=== PATIENT | female | born 1975 | race Caucasian/White ===

== ENCOUNTER 2020-07-03 16:45 | Emergency (ER) | payer BC, SELFPAY ==
--- NOTE | ~2020-07-03 | XR_ITS ---
EXAMINATION: XR shoulder RT min 2V DATE: 07/03/2020 17:24 INDICATION: Right shoulder injury. TECHNIQUE: 4 views of right shoulder were obtained. COMPARISON: None. FINDINGS: Bone alignment is normal. No fracture. Glenohumeral joint is normal. There is mild acromioc lavicular joint osteoarthritis. IMPRESSION: 1. Mild right acromioclavicular joint osteoarthritis. Reviewed, dictated and finalized at location A.
[2020-07-03 16:52] VITALS: BP 189/100; PULSE 75; RESP 20; TEMP 36.2; O2SAT 100
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
== END 2020-07-03 17:40 | disposition home or self-care (01) ==
PROVIDERS: Emergency Provider Nurse Practitioner
DX: S40.011A Contusion of right shoulder, initial encounter (principal); W22.8XXA Striking against or struck by other objects, initial encounter; I10 Essential (primary) hypertension
CPT/HCPCS: 73030; 99213; G0463

== ENCOUNTER 2022-02-09 11:54 | Emergency (ER) | payer OTHER, MEDICAID, SELFPAY ==
[2022-02-09 12:06] VITALS: PULSE 78; RESP 16; TEMP 37; O2SAT 99
[2022-02-09 12:09] VITALS: BP 187/115
--- NOTE | 2022-02-09 12:53 | ED.URI ---
HPI - URI/Sore Throat General Chief Complaint: Upper Respiratory Infection Stated Complaint: Congestion/Fever Time Seen by Provider: 02/09/22 12:53 Source: patient, RN notes reviewed and old records reviewed Mode of arrival: ambulatory Limitations: no limitations History of Present Illness HPI Narrative: 46 year old female who presents to [facility] care with complaints of 4 days of headache night sweats, and intermittent temperatures with sore throat and cough. Patient reports that she had COVID Martina of 2020 and has not had flu shot.Patient has been taking Tylenol for her symptoms. Patient denies any shortness of breath with no tachypnea, SAO2 99% on room air, patient reports history of asthma. MD elicited complaint: fever, cough, sore throat and other (headache) Pertinent past history: asthma Onset (ago): day(s) (4) Treatments prior to arrival: acetaminophen Related Data Allergies Allergy/AdvReac Type Severity Reaction Status Date / Time diphenhydramine Allergy Palpitation Verified 09/30/20 14:45 [From Ernie] s Review of Systems Review of Systems: CONSTITUTIONAL: reports malaise, chills, sweats, or fever. EYES: Denies visual changes, redness, or discharge. ENT: Reports rhinorrhea, congestion, sinus pain,no otalgia positive sore throat. CARDIOVASCULAR: Denies chest pain, palpitations, or edema. RESPIRATORY: Reports cough.? Denies dyspnea. GASTROINTESTINAL: Denies abdominal pain, nausea, vomiting, diarrhea SKIN: Denies rash or itching. MUSCULOSKELETAL: reports generalized myalgia. NEUROLOGIC: Reports headache. All systems reviewed & are unremarkable except as noted in HPI and below PMFSH Past Medical History Medical History Allergies Anemia Anxiety Asthma Migraine Family History Family History Father , 2014 Diabetes mellitus Hypertension Heart disease Mother Asthma Diabetes mellitus Hypertension Depression Colon cancer Sibling Asthma Depression Son Asthma Depression Daughter Asthma Depression Grandparent Diabetes mellitus Hypertension Grandparent Diabetes mellitus Hypertension Heart disease Social History Social History Smoking packs per day: 0 Smoking cigarettes per day: 0.0 Years smoked: 0 Smoking pack-years: 0.00 Smoking status: Never smoker Second hand tobacco smoke exposure: No Alcohol intake: never Drinks per week: 0 Substance use: never 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 Gender identity (if verbalized by the patient): Female Sexual Orientation (if Verbalized by the Patient): Straight or Heterosexual Spiritual care concerns: No Agree to blood products: Yes Comments At time of signature, agree with nursing past medical, surgical, social and family history. There is no relevant family history pertinent to the presenting complaint Exam Narrative: GENERAL: Well-appearing, well-nourished, obese and in no acute distress. HEAD: Normocephalic EYES: PERRLA, conjunctivae clear ENT: Nares clear, turbinates edematous and erythematous, clear discharge. Mucous membranes moist. TM pearly valadez with dull light reflex bilaterally; no tragal tenderness. Oropharynx erythematous without lesions. Tonsils enlarged with white exudate, no drooling, no hoarseness, no trismus, uvula midline. NECK: Supple. lymphadenopathy CHEST: Clear to auscultation, breath sounds equal. No wheezing, rhonchi, rales, or stridor. No respiratory distress, speaks in full sentences.SAO2 99% on room air HEART: Regular rate and rhythm. No murmur heard. SKIN: Warm, dry, no rash. NEURO: Alert and oriented x3. PSYCH: Normal mood and affect Course Course Emergency Course: Patient is aware of diagnosis, understands and agrees to treatm
== END 2022-02-09 13:26 | disposition home or self-care (01) ==
PROVIDERS: Emergency Provider Registered Nurse
DX: J03.90 Acute tonsillitis, unspecified (principal); J45.909 Unspecified asthma, uncomplicated
CPT/HCPCS: 87804; 99213; G0463

== ENCOUNTER 2022-05-15 10:26 | Emergency (ER) | payer OTHER, MEDICAID, SELFPAY ==
[2022-05-15 10:33] VITALS: BP 155/89; PULSE 89; RESP 16; TEMP 37.4; O2SAT 98
--- NOTE | 2022-05-15 11:21 | ED.URI ---
HPI - URI/Sore Throat General Chief Complaint: Upper Respiratory Infection Stated Complaint: Cold Symptoms Time Seen by Provider: 05/15/22 11:15 Source: patient, RN notes reviewed and old records reviewed Mode of arrival: ambulatory Limitations: no limitations History of Present Illness HPI Narrative: 46-year-old female who presents to [facility] Care with complaints of 3 day history of cold symptoms which include right ear pressure, cough with chest congestion,sinus congestion and drainage with some wheezing noted. Patient reports that she has been taking Mucinex and also daily allergy medication with out resolution. 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 Patient reports low grade fevers, some chills and feels achy. MD elicited complaint: cough, rhinorrhea, nasal congestion and other (right ear pressure) Pertinent past history: asthma and seasonal allergies Onset (ago): day(s) (3) Pain scale (0-10): 4 Treatments prior to arrival: other (Mucinex and antihistamines) Related Data Allergies Allergy/AdvReac Type Severity Reaction Status Date / Time diphenhydramine Allergy Palpitation Verified 09/30/20 14:45 [From Ernie] s Review of Systems Review of Systems: CONSTITUTIONAL: reports malaise, chills, sweats, or fever. EYES: Denies visual changes, redness, or discharge. ENT: Reports rhinorrhea, congestion, sinus pain,right otalgia, scratchy throat. CARDIOVASCULAR: Denies chest pain, palpitations, or edema. RESPIRATORY: Reports cough.? Denies dyspnea. GASTROINTESTINAL: Denies abdominal pain, nausea, vomiting, diarrhea SKIN: Denies rash or itching. MUSCULOSKELETAL: reports myalgia. NEUROLOGIC:Reports some headache. All systems reviewed & are unremarkable except as noted in HPI and below PMFSH Past Medical History Medical History Allergies Anemia Anxiety Asthma Migraine Family History Family History Father , 2014 Diabetes mellitus Hypertension Heart disease Mother Asthma Diabetes mellitus Hypertension Depression Colon cancer Sibling Asthma Depression Son Asthma Depression Daughter Asthma Depression Grandparent Diabetes mellitus Hypertension Grandparent Diabetes mellitus Hypertension Heart disease Social History Social History Smoking packs per day: 0 Smoking cigarettes per day: 0.0 Years smoked: 0 Smoking pack-years: 0.00 Smoking status: Never smoker Second hand tobacco smoke exposure: No Alcohol intake: never Drinks per week: 0 Substance use: never Living arrangements: alone Occupation/Education: occupation 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 Gender identity (if verbalized by the patient): Female Sexual Orientation (if Verbalized by the Patient): Straight or Heterosexual Spiritual care concerns: No Agree to blood products: Yes Comments At time of signature, agree with nursing past medical, surgical, social and family history. There is no relevant family history pertinent to the presenting complaint Exam Narrative: GENERAL: Well-appearing, well-nourished, and in no acute distress. HEAD: Normocephalic EYES: PERRLA, conjunctivae clear ENT: Nares clear, turbinates edematous and erythematous, clear to yellow discharge.sinus pressure headache Mucous membranes moist. TM pearly valadez with dull light reflex bilaterally; no tragal tenderness. Oropharynx erythematous without lesions. Tonsils not enlarged and without exudate, no drooling, no hoarseness, no trismus, uvula midline.post nasal drainage NECK: Supple. No lymphadenopathy CHEST: Clear to auscultation, breath sounds equal. No wheezing, rhonchi, rales, or stridor. No respiratory distress, speaks in full sentences.dry an
== END 2022-05-15 12:12 | disposition home or self-care (01) ==
PROVIDERS: Emergency Provider Registered Nurse; PCP Family Medicine
DX: J06.9 Acute upper respiratory infection, unspecified (principal); Z20.822 Contact with and (suspected) exposure to COVID-19
CPT/HCPCS: 87081; 87426; 87880; 99213; C9803; G0463

== ENCOUNTER 2022-10-26 08:04 | Emergency (ER) | payer OTHER, MEDICAID, SELFPAY ==
[2022-10-26 08:13] VITALS: BP 142/90; PULSE 73; RESP 20; TEMP 36.7; O2SAT 99
--- NOTE | 2022-10-26 08:20 | ED.SKABFB ---
HPI - Skin/Abscess/Foreign Bdy General Chief complaint: Skin/Abscess/Foreign Body Stated complaint: Poison florentin/oak History of Present Illness HPI narrative: Pt is a 47 y/o female, presents to with pruritic rash of the upper and lower extremities, onset two days ago after working in her yard. She has hx of contact allergies to poison florentin and poison oak in the past. she took one dose of OTC allergy medication last HS. Today she notices her eye lids are itching and swollen, prompting her visit. She denies associated throat, tongue or lip swelling, she has no problems breathing and she denies painful eruptions or concerns for infection. Related Data Allergies Allergy/AdvReac Type Severity Reaction Status Date / Time diphenhydramine Allergy Palpitation Verified 09/30/20 14:45 [From Benadryl] s Review of Systems Eyes: Comments: refer to HPI No vision changes, no crusting or drainage from the eyes Integumentary/Breasts: Comments: refer to HPI [facility] Past Medical History Medical History Allergies Anemia Anxiety Asthma Migraine Family History Family History Father , 2014 Diabetes mellitus Hypertension Heart disease Mother Asthma Diabetes mellitus Hypertension Depression Colon cancer Sibling Asthma Depression Son Asthma Depression Daughter Asthma Depression Grandparent Diabetes mellitus Hypertension Grandparent Diabetes mellitus Hypertension Heart disease Social History Social History Smoking packs per day: 0 Smoking cigarettes per day: 0.0 Years smoked: 0 Smoking pack-years: 0.00 Smoking status: Never smoker Second hand tobacco smoke exposure: No Alcohol intake: never Drinks per week: 0 Substance use: never Living arrangements: alone Occupation/Education: occupation 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 Gender identity (if verbalized by the patient): Female Sexual Orientation (if Verbalized by the Patient): Straight or Heterosexual Spiritual care concerns: No Agree to blood products: Yes Exam Const: General: healthy appearing, no acute distress and alert Nutritional Appearance: obese Orientation/consciousness: patient oriented x3 Limitations: no limitations HENMT: Head: normal to inspection Ears: external ears normal Face/Nose/Sinus: Normal external nose present Mouth: Yes Normal oral and palatal mucosa present Throat: posterior oropharynx normal and uvula midline Eyes: Conjunctivae: conjunctivae normal Pupils: Equal, round and reactive pupils present EOM: EOMs intact bilaterally Other: upper eyelids are mildly swollen bilaterally No erythema or TTP No papular rash eruption or vesicles noted Neck: Neck: normal visual inspection, no lymphadenopathy and no meningeal signs Resp: Effort & Inspection: normal respiratory effort Auscultation: clear to auscultation bilaterally Cardio: Rate: regular rate Rhythm: regular rhythm Skin: General skin exam: normal color Other: pt has a papular rash erupting over the lower legs/thighs and shins, some with linear brush like patterns, similar rash is noted to the forearms bilaterally and upper chest. No pustules or vesicles noted. no honey crusting or lymphangitis. Non TTP Course Course Emergency Course: Pt's rash is consistent with contact dermatitis. Plan to treat with steroid taper, continue OTC antihistamines,Caladryl topically PRN, FU with PCP if rash is not improving in 3 days with PCP Level of Care: Express Care Visit ([id number]) Vital Signs Vital signs: Vital Signs Temperature 36.7 C 10/26/22 08:13 Pulse Rate 73 10/26/22 08:13 Respiratory Rate 20 10/26/22 08:13 Pulse Oximetry 99 10/26/22 08:13 Oxygen Delivery Room Air 10/26/22 08:13
== END 2022-10-26 08:34 | disposition home or self-care (01) ==
PROVIDERS: Emergency Provider Nurse Practitioner Family; PCP Family Medicine
DX: L25.9 Unspecified contact dermatitis, unspecified cause (principal); J45.909 Unspecified asthma, uncomplicated
CPT/HCPCS: 99213; G0463

== ENCOUNTER 2022-11-29 15:13 | Emergency (ER) | payer OTHER, MEDICAID, SELFPAY ==
[2022-11-29 15:18] VITALS: BP 184/95; PULSE 74; RESP 20; TEMP 37.3; O2SAT 99
[2022-11-29 15:27] VITALS: BP 184/95; PULSE 74; RESP 20; TEMP 37.3; O2SAT 99
--- NOTE | 2022-11-29 15:27 | ED.EXTPRO ---
HPI - Extremity Problem General Chief complaint: Extremity Problem,Nontraumatic Stated complaint: Right arm /fingers numbness History of Present Illness HPI Narrative: Patient presents with chronic shoulder problems. Patient has been diagnosed with osteoarthritis of the shoulder in the past. Patient today presents with right shoulder and arm pain. No injury. Patient is not taking anything [id number] for pain or discomfort. Patient states that her work her children pull on her arm constantly which is aggravated her arthritis. Related Data Allergies Allergy/AdvReac Type Severity Reaction Status Date / Time diphenhydramine Allergy Palpitation Verified 11/29/22 15:23 [From [facility]] s Review of Systems Review of Systems: CONSTITUTIONAL: Denies fever, chills, or sweats. EYES: Denies visual changes, redness, or discharge. ENT: Denies rhinorrhea, congestion, sore throat, or otalgia. CARDIOVASCULAR: Denies chest pain, palpitations, or edema. RESPIRATORY: Denies cough or dyspnea. GASTROINTESTINAL: Denies abdominal pain, nausea, vomiting, or diarrhea. GENITOURINARY: Denies dysuria or hematuria. SKIN: Denies rash or itching. MUSCULOSKELETAL: Denies back pain, joint pain, or myalgia. NEUROLOGIC: Denies headache, numbness, or weakness. PSYCHIATRIC: Denies anxiety or depression. [facility] Past Medical History Medical History Allergies Anemia Anxiety Asthma Migraine Family History Family History Father , 2014 Diabetes mellitus Hypertension Heart disease Mother Asthma Diabetes mellitus Hypertension Depression Colon cancer Sibling Asthma Depression Son Asthma Depression Daughter Asthma Depression Grandparent Diabetes mellitus Hypertension Grandparent Diabetes mellitus Hypertension Heart disease Social History Social History Smoking packs per day: 0 Smoking cigarettes per day: 0.0 Years smoked: 0 Smoking pack-years: 0.00 Smoking status: Never smoker Second hand tobacco smoke exposure: No Alcohol intake: never Drinks per week: 0 Substance use: never Living arrangements: alone Occupation/Education: occupation 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 Gender identity (if verbalized by the patient): Female Sexual Orientation (if Verbalized by the Patient): Straight or Heterosexual Spiritual care concerns: No Agree to blood products: Yes Comments At time of signature, agree with nursing past medical, surgical, social and family history. There is no relevant family history pertinent to the presenting complaint Exam Narrative: GENERAL: Well-appearing, well-nourished, and in no acute distress. HEAD: Normocephalic, atraumatic. EYES: PERRLA and EOMI. ENT: Nares clear, no rhinorrhea or epistaxis. Mucous membranes moist. NECK: Supple. CHEST: Clear to auscultation. No respiratory distress. HEART: Regular rate and rhythm. No murmur heard. Normal peripheral pulses. ABDOMEN: Soft, nontender, nondistended, normal active bowel sounds. EXTREMITIES: Normal range of motion. No edema. Shoulder exam normal shoulder exam NO SWELLING, BRUISING, SKIN CHANGES. SKIN INTACT. NORMAL RADIAL PULSE. NO DEFORMITY OF SHOULDER. NO CLAVICLE TENDERNESS. NORMAL UE SENSATION AND STRENGTH. ROM EVALUATED - CAN RAISE UE ABOVE SHOULDER, CAN ABDUCT, ADDUCT, EXTERNALLY ROTATE AND CAN INTERNALLY ROTATE AND RAISE THUMB UP THE SPINE. NO AC JOINT TENDERNESS, CAN CROSS ARM HORIZONTALLY AND PLACE HAND ON OPPOSITE SHOULDER, NO WINGING OF THE SCAPULA. SUPRASPINATUS APPEARS NORMAL WITH ARMS STRAIGHT OUT AT 30 DEGREES, THUMB DOWN , CAN ABDUCT AGAINST RESISTANCE. SKIN: Warm, dry, no rash. NEURO: No focal deficits. Alert and oriented x3. Myron Coma Scale Eye Opening: Spontaneous [address] [place]
== END 2022-11-29 15:32 | disposition home or self-care (01) ==
PROVIDERS: Emergency Provider Nurse Practitioner Family; PCP Family Medicine
DX: M19.011 Primary osteoarthritis, right shoulder (principal)
CPT/HCPCS: 99213; G0463

== ENCOUNTER 2022-12-12 13:21 | Emergency (ER) | payer OTHER, MEDICAID, SELFPAY ==
[2022-12-12 13:34] VITALS: BP 163/95; PULSE 80; RESP 16; TEMP 37.2; O2SAT 97
--- NOTE | 2022-12-12 13:35 | ED.URI ---
HPI - URI/Sore Throat General Chief Complaint: Upper Respiratory Infection Stated Complaint: Cough/Weezing History of Present Illness HPI Narrative: PATIENT PRESENTS WITH NASAL CONGESTION COUGH AND UPPER RESPIRATORY SYMPTOMS. PATIENT DOES REPORT A SORE THROAT BUT DENIES ANY TROUBLE SWALLOWING NO DROOLING. PATIENT STATES SHE TAKES CLARITIN DAILY FOR NOR ALLERGIES AND HAS FLONASE AT HOME BUT HAS NOT USED HER FLONASE NASAL SPRAY. Related Data Home Medications Medication Instructions Recorded Confirmed No Home Medications 12/12/22 12/12/22 Allergies Allergy/AdvReac Type Severity Reaction Status Date / Time diphenhydramine Allergy Palpitation Verified 12/12/22 13:33 [From Ernie] s Review of Systems Review of Systems: CONSTITUTIONAL: DENIES CHILLS, OR SWEATS. REPORTS FEVER AND GENERALIZED BODY ACHES EYES: DENIES VISUAL CHANGES, REDNESS, OR DISCHARGE. ENT: DENIES OTALGIA. REPORTS NASAL CONGESTION RUNNY NOSE AND SORE THROAT CARDIOVASCULAR: DENIES CHEST PAIN, PALPITATIONS, OR EDEMA. RESPIRATORY: DENIES DYSPNEA. REPORTS OCCASIONAL COUGH GASTROINTESTINAL: DENIES ABDOMINAL PAIN, NAUSEA, VOMITING, OR DIARRHEA. GENITOURINARY: DENIES DYSURIA OR HEMATURIA. SKIN: DENIES RASH OR ITCHING. MUSCULOSKELETAL: DENIES BACK PAIN, JOINT PAIN, OR MYALGIA. REPORTS GENERALIZED BODY ACHES NEUROLOGIC: DENIES HEADACHE, NUMBNESS, OR WEAKNESS. PSYCHIATRIC: DENIES ANXIETY OR DEPRESSION. [facility] Past Medical History Medical History Allergies Anemia Anxiety Asthma Migraine Family History Family History Father , 2014 Diabetes mellitus Hypertension Heart disease Mother Asthma Diabetes mellitus Hypertension Depression Colon cancer Sibling Asthma Depression Son Asthma Depression Daughter Asthma Depression Grandparent Diabetes mellitus Hypertension Grandparent Diabetes mellitus Hypertension Heart disease Social History Social History Smoking packs per day: 0 Smoking cigarettes per day: 0.0 Years smoked: 0 Smoking pack-years: 0.00 Smoking status: Never smoker Second hand tobacco smoke exposure: No Alcohol intake: never Drinks per week: 0 Substance use: never Living arrangements: alone Occupation/Education: occupation 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 Gender identity (if verbalized by the patient): Female Sexual Orientation (if Verbalized by the Patient): Straight or Heterosexual Spiritual care concerns: No Agree to blood products: Yes Exam Narrative: THE PATIENT IS A WELL-DEVELOPED, WELL-NOURISHED IN NO ACUTE DISTRESS. SKIN: SKIN IS WARM AND DRY WITHOUT ERYTHEMA, SWELLING OR EXUDATE. THERE IS GOOD TURGOR. NO TENTING. HEAD: ATRAUMATIC. NORMOCEPHALIC. NO TEMPORAL OR SCALP TENDERNESS. EYES: MOIST AND BRIGHT. SCLERA AND CONJUNCTIVAE NORMAL. NO DISCHARGE. PERRLA. EXTRAOCULAR MOTIONS INTACT. GROSS VISUAL ACUITY INTACT. EARS: PINNA IS NORMAL SHAPE AND CONTOUR. CLEAR EXTERNAL AUDITORY CANALS. TM PEARLY DIEGO WITH GOOD CONE OF LIGHT, NO ERYTHEMA OR SUPPURATION. BILATERAL CERUMEN NOTED NO GROSS HEARING DEFICIT. NOSE: PINK, MOIST MUCOSA WITH GOOD AIR MOVEMENT. CLEAR RHINORRHEA WITHOUT NASAL FLARING. SEPTUM MIDLINE. MOUTH: MOIST MUCOUS MEMBRANES. THROAT; MILD ERYTHEMA NOTED TO POSTERIOR OROPHARYNX WITH MODERATE POSTNASAL DRAINAGE. WITHOUT EXUDATE OR ULCERATION.. UVULA MIDLINE. NORMAL MOVEMENT OF SOFT PALATE. NECK: SUPPLE AND NONTENDER WITH FULL RANGE OF MOTION WITHOUT DISCOMFORT. NO MENINGEAL SIGNS. LUNGS: EQUAL AND BILATERAL BREATH SOUNDS WITHOUT WHEEZES, RALES OR RHONCHI. CHEST: THE CHEST WALL IS WITHOUT RETRACTIONS OR USE OF ACCESSORY MUSCLES. HEART: HAS A REGULAR RATE AND RHYTHM WITHOUT MURMUR, GALLOPS, CLICK OR RUB. ABDOMEN: SOFT, NONTENDER WITH POSITIVE
== END 2022-12-12 14:00 | disposition home or self-care (01) ==
PROVIDERS: Emergency Provider Nurse Practitioner Family; PCP Family Medicine
DX: J06.9 Acute upper respiratory infection, unspecified (principal); R09.81 Nasal congestion; J45.909 Unspecified asthma, uncomplicated
CPT/HCPCS: 87081; 87880; 99213; G0463

== ENCOUNTER 2022-12-16 11:37 | Outpatient (CLI) | payer OTHER, MEDICAID, SELFPAY ==
--- NOTE | ~2022-12-16 | XR_ITS ---
XR chest 2V DATE: 12/16/2022 11:47 INDICATION: Acute upper respiratory infection TECHNIQUE: PA and lateral views COMPARISON: None FINDINGS: There is patchy consolidation of the right upper lobe and patchy left lower lobe infiltrate in addition to probable scattered additional bilateral areas of lesser infiltrate. Findings are sugg estive of multifocal bilateral pneumonia. Normal heart size. Mild aortic calcification and tortuosity. No hilar or mediastinal enlargement. No pleural effusion or pulmonary vascular congestion or pneumothorax. Degenerative spurring of the thoracic spine. IMPRESSION: Multifocal bilateral infiltrates, likely due to bilateral pneumonia Reviewed, dictated and finalized at location L.
== END 2022-12-16 11:38 | disposition home or self-care (01) ==
PROVIDERS: PCP Nurse Practitioner Adult Health; Visit Provider Nurse Practitioner Adult Health
DX: R91.8 Other nonspecific abnormal finding of lung field (principal); J06.9 Acute upper respiratory infection, unspecified
CPT/HCPCS: 71046

== ENCOUNTER 2022-12-30 10:28 | Outpatient (CLI) | payer OTHER, SELFPAY ==
--- NOTE | ~2022-12-30 | XR_ITS ---
XR chest 2V DATE: 12/30/2022 11:08 INDICATION: Pneumonia TECHNIQUE: PA and lateral views. COMPARISON: 12/16/2022 2 view chest FINDINGS: There is virtually complete interval resolution of bilateral infiltrates since 12/16/2022. Normal heart size. Minimal aortic unfolding. No hilar or mediastinal enlargement. No pleural effusion or pulmonary vascular congestion or pneumothorax. Diffuse idiopathic skeletal hyperostosis and mild levoscoliosis of the thoracic spine IMPRESSION: No active cardiopulmonary disease Reviewed, dictated and finalized at location L.
== END 2022-12-30 10:29 | disposition home or self-care (01) ==
LOC: ANHBWCLAB 10:29
PROVIDERS: PCP Nurse Practitioner Adult Health; Visit Provider Nurse Practitioner Adult Health
DX: J18.9 Pneumonia, unspecified organism (principal)
CPT/HCPCS: 71046

== ENCOUNTER 2023-02-04 12:13 | Outpatient (CLI) | payer OTHER, SELFPAY ==
[2023-02-04 12:50] LABS: Basophils Absolute Auto 0.1 K/mm3 (0.0-0.1); Basophils Percent Auto 0.6 % (0.2-1.2); Eosinophils Absolute Auto 0.2 K/mm3 (0-0.3); Eosinophils Percent Auto 2.8 % (0-4.4); Hematocrit 42.2 % (37.0-47.0); Hemoglobin 13.1 g/dL (12.0-15.0); Immature Granulocyte Absolute 0.02 K/mm3 (0.00-0.031); Immature Granulocyte Percent A 0.2 % (0-0.5); Lymphocytes Absolute Auto 2.07 K/mm3 (0.9-3.2); Lymphocytes Percent Auto 25.4 % (18.3-44.2); Mean Corpuscular Hemoglobin 23.8 pg (26-34); Mean Corpuscular Volume 76.6 fl (80-100); Mean Platelet Volume 10.2 fl (7.4-10.4); Monocytes Absolute Auto 0.6 K/mm3 (0.1-0.6); Monocytes Percent Auto 6.7 % (2.6-8.5); Neutrophils Absolute Auto 5.2 K/mm3 (1.3-6.7); Neutrophils Percent Auto 64.3 % (45.5-73.1); Platelet Count Result 275 k/mm3 (150-375); Red Blood Count 5.51 M/mm3 (4.2-5.4); Red Cell Distribution Width 15.9 % (11.5-14.5); White Blood Count 8.2 K/mm3 (4.5-10.0)
[2023-02-04 13:00] LABS: Platelet Estimate Adequate (Adequate); Schistocytes None Seen (NORMAL)
[2023-02-04 13:01] LABS: Anisocytosis 1+ (NORMAL); Giant Platelets Present; Microcytosis 1+ (NORMAL)
[2023-02-04 15:12] LABS: Iron 174 ug/dL (37-170)
[2023-02-04 15:18] LABS: Alanine Aminotransferase 16 U/L (6-35); Albumin Level 4.4 g/dL (3.5-5.1); Alkaline Phosphatase 69 U/L (38-126); Anion Gap 10 mmol/L (8-16); Aspartate Amino Transferase 21 U/L (14-36); Bilirubin,Total 0.4 mg/dL (0.2-1.3); Blood Urea Nitrogen 11 mg/dL (7-17); Calcium 8.7 mg/dL (8.4-10.2); Carbon Dioxide 25 mmol/L (22-30); Chloride 102 mmol/L (98-107); Estimated Glomerular Filt Rate > 60; Glucose 97 mg/dL (65-110); Potassium 3.9 mmol/L (3.4-5.0); Sodium 137 mmol/L (137-145)
[2023-02-04 15:23] LABS: Percent Iron Saturation 43 % (20-50)
[2023-02-04 16:26] LABS: Folic Acid 6.7 ng/mL (2.76->20)
[2023-02-08 09:24] LABS: Methylmalonic Acid 306 nmol/L (87-318)
[2023-02-08 17:32] LABS: Soluble Transferrin Receptor 2.07 mg/L (0.76-1.76)
== END 2023-02-04 12:14 | disposition home or self-care (01) ==
LOC: ANHLAB 12:15
PROVIDERS: Nurse Practitioner Family; PCP Nurse Practitioner Adult Health; Visit Provider Internal Medicine Hematology & Oncology
DX: D50.0 Iron deficiency anemia secondary to blood loss (chronic) (principal)
CPT/HCPCS: 36415; 80053; 82607; 82728; 82746; 83540; 83550; 83921; 84238; 85025

== ENCOUNTER 2023-02-16 14:25 | Outpatient (CLI) | payer OTHER, SELFPAY ==
--- NOTE | ~2023-02-16 | US_ITS ---
EXAMINATION: US soft tissue head and neck DATE: 02/16/2023 16:25 INDICATION: Cervical lymphadenopathy. TECHNIQUE: Multiple grayscale and Doppler ultrasound images of the head and neck were obtained. COMPARISON: None FINDINGS: There is a 2.7 x 1.1 x 2.1 cm lymph node in right neck. There are normal sized lymph nodes in the neck bilaterally. IMPRESSION: 1. Borderline enlarged lymph node in right neck, likely reactive. Reviewed, dictated and finalized at location E. S PRODUCER
== END 2023-02-16 14:26 | disposition home or self-care (01) ==
LOC: ANHIMG 14:32
PROVIDERS: PCP Nurse Practitioner Adult Health; Visit Provider Nurse Practitioner Family
DX: R59.1 Generalized enlarged lymph nodes (principal); Z12.31 Encounter for screening mammogram for malignant neoplasm of breast
CPT/HCPCS: 99199; 76536

== ENCOUNTER 2023-03-17 12:18 | Outpatient (CLI) | payer OTHER, SELFPAY ==
--- NOTE | ~2023-03-17 | US_ITS ---
EXAMINATION: US biopsy lymph node DATE: 03/17/2023 13:50 INDICATION: Lymphadenopathy TECHNIQUE: The procedure including the risks and benefits was discussed with the patient. Risks discu ssed included bleeding and infection. The patient understood the risks and agreed to proceed. The sk in overlying the right neck was prepped and draped in usual sterile fashion. Anesthetic was administ ered with 1% lidocaine subcutaneously. An 18 gauge core biopsy needle was advanced under continuous ultrasound observation to the lesion of interest. 8 core biopsy specimens were obtained, 3 placed in formalin and 5 in RPMI media. The needle was removed and the entry site was cleaned and dressed. Po st procedure ultrasound demonstrated a minimal amount of hemorrhage around the biopsied lymph node. FINDINGS: Ultrasound images redemonstrate the previous noted mildly prominent high right jugular jose n lymph nodes. He canal measures 8 mm in maximal short axis diameter, the more cephalad along the inf erior margin of the parotid appears to be decreased slightly in size since the prior study at which t juan manuel it measured approximately 10 mm in short axis diameter. Subsequent images demonstrate biopsy need le advanced into the more accessible inferior of the 2 lymph nodes. IMPRESSION: 1. Successful Ultrasound-guided biopsy of the more caudal of a similar sized pair of mildly prominent right jugular chain lymph nodes, the more cephalad of which appears to be decreased slightly in size since the prior study. Reviewed, dictated and finalized at location A. RT KEEPER IMPRESSION: 1. Successful Ultrasound-guided biopsy of the more caudal of a similar sized pa ir of mildly prominent right jugular chain lymph nodes, the more cephalad of wh ich appears to be decreased slightly in size since the prior study.
== END 2023-03-17 12:19 | disposition home or self-care (01) ==
LOC: ANHIMG 12:21
PROVIDERS: PCP Nurse Practitioner Adult Health; Visit Provider Nurse Practitioner Family
DX: R59.1 Generalized enlarged lymph nodes (principal)
CPT/HCPCS: 38505; 76942; 88108; 88184; 88185; 88305

== ENCOUNTER 2023-04-01 00:11 | Day surgery (SDC) | payer OTHER, SELFPAY ==
[2023-03-09 13:18] VITALS: BMI 44.2
--- NOTE | 2023-03-30 10:11 | SUR.PREOP ---
Patient called regarding upcoming procedure. Message left on pt's voicemail regarding appointment times.
[2023-04-01 08:59] VITALS: BP 196/86; PULSE 75; RESP 20; TEMP 36.6; O2SAT 100
[2023-04-01] MEDS: LACTATED RINGERS 1,000 ML 150 ML IV CONT (09:20)
--- NOTE | 2023-04-01 09:30 | WPDANESEPPF ---
Anes - Initial Pre Proc Eval Procedure: Operation Date: 04/01/23 10:00 Proposed Procedures p Screening Colonoscopy - Ayo Jay MD Date/Time: 04/01/23 09:30 Surgeon: Ayo Jay MD Pre Op Diagnosis: neoplasm screening Patient Data Age: 47 Gender: F Height: 1.63 m Weight: 112.5 kg Last Vital Signs Temp 97.8 F 04/01/23 08:59 Pulse 75 04/01/23 08:59 Resp 20 04/01/23 08:59 BP 196/86 H 04/01/23 08:59 Pulse Ox 100 04/01/23 08:59 O2 Del Method Room Air 04/01/23 08:59 Allergies Allergy/AdvReac Type Severity Reaction Status Date / Time diphenhydramine Allergy Palpitation Verified 04/01/23 08:58 [From Benadantonette] s Home Medications Medication Instructions Recorded Confirmed Type lisinopril 20 mg tablet 20 mg PO DAILY #30 tabs 01/04/23 03/09/23 Rx ferrous sulfate 325 mg (65 mg 325 mg PO BID #60 tabs 01/25/23 03/09/23 Rx iron) tablet (Feosol) Patient hx anesthesia problems: none Family hx anesthesia problems: none Results Review: All pre-operative results and documents have been reviewed as part of the pre-operative evaluation. [facility] Past Medical History Medical History Allergies Anemia Anxiety Asthma Migraine Family History Family History Father , 2014 Diabetes mellitus Hypertension Heart disease Mother Asthma Diabetes mellitus Hypertension Depression Colon cancer Sibling Asthma Depression Son Asthma Depression Daughter Asthma Depression Grandparent Diabetes mellitus Hypertension Grandparent Diabetes mellitus Hypertension Heart disease Social History Social History Smoking packs per day: 0 Smoking cigarettes per day: 0.0 Years smoked: 0 Smoking pack-years: 0.00 Smoking status: Never smoker Second hand tobacco smoke exposure: No Alcohol intake: never Drinks per week: 0 Substance use: never Substance use type: does not use Living arrangements: with family Occupation/Education: occupation 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 Gender identity (if verbalized by the patient): Female Sexual Orientation (if Verbalized by the Patient): Straight or Heterosexual Spiritual care concerns: No Agree to blood products: Yes Anes - Eval Final PreProcedure Day of Procedure 04/01/23 09:30 Patient weight: morbidly obese Heart: regular rate and rhythm Lungs: clear to auscultation Airway: Mallampati scale class III Neurological: alert and oriented Last oral intake: >/= 8 hours ASA classification: III Emergent: no Anesthetic plan: proceed Anesthesia type and monitoring: general GIVS and standard monitoring Results Review: All pre-operative results and documents have been reviewed as part of the pre-operative evaluation. Informed Consent: The patient's anesthetic plan and its attendant risks and benefits were discussed with the patient/family/POA. Questions were solicited and answers provided to the satisfaction of the patient/family/POA.
[2023-04-01 09:34] VITALS: BP 179/95; PULSE 75; RESP 20; O2SAT 100
--- NOTE | 2023-04-01 09:42 | PM.HPGS ---
History of Present Illness History of Present Illness Consent: Risks, benefits, and alternatives have been discussed and questions answered. Patient agrees to proceed with procedure. Chief complaint: neoplasm screening Narrative: Lachelle Saleem is a 47 year old female here for first screening colonoscopy Review of Systems Constitutional: Constitutional: Denies headache(s) and Denies weakness Eyes: Eyes: Denies blurry vision ENT: Reports Normal hearing present, Denies headache(s) and Denies neck pain Cardiovascular: Cardiovascular: Denies chest pain and Denies dyspnea Respiratory: Respiratory: Denies dyspnea Gastrointestinal: Gastrointestinal: Reports no additional gastrointestinal complaints Genitourinary: Genitourinary: Denies dysuria Musculoskeletal: Musculoskeletal: Denies neck pain Integumentary/Breasts: Skin/Breast: Denies dry skin Neurologic: Reports Normal hearing present, Denies headache(s) and Denies weakness Psychiatric: Psychiatric: Denies anxiety Endocrine: Endocrine: Denies change in body appearance Hematologic/Lymphatic: Hematologic/Lymphatic: Denies easy bleeding Allergic/Immunologic: Allergic/Immunologic: Denies urticaria PMFSH Past Medical History Medical History Allergies Anemia Anxiety Asthma Migraine Family History Family History Father , 2014 Diabetes mellitus Hypertension Heart disease Mother Asthma Diabetes mellitus Hypertension Depression Colon cancer Sibling Asthma Depression Son Asthma Depression Daughter Asthma Depression Grandparent Diabetes mellitus Hypertension Grandparent Diabetes mellitus Hypertension Heart disease Social History Social History Smoking packs per day: 0 Smoking cigarettes per day: 0.0 Years smoked: 0 Smoking pack-years: 0.00 Smoking status: Never smoker Second hand tobacco smoke exposure: No Alcohol intake: never Drinks per week: 0 Substance use: never Substance use type: does not use Living arrangements: with family Occupation/Education: occupation 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 Gender identity (if verbalized by the patient): Female Sexual Orientation (if Verbalized by the Patient): Straight or Heterosexual Spiritual care concerns: No Agree to blood products: Yes Meds Home Medications and Allergies Home Medications Medication Instructions Recorded Confirmed Type lisinopril 20 mg tablet 20 mg PO DAILY #30 tabs 01/04/23 03/09/23 Rx ferrous sulfate 325 mg (65 mg 325 mg PO BID #60 tabs 01/25/23 03/09/23 Rx iron) tablet (Feosol) Allergies Allergy/AdvReac Type Severity Reaction Status Date / Time diphenhydramine Allergy Palpitation Verified 04/01/23 08:58 [From Ernie] s Vital Signs Vital Signs - 24 hr 04/01/23 08:59 04/01/23 09:34 Temperature 97.8 F Pulse Rate 75 75 Respiratory Rate 20 20 Blood Pressure 196/86 H 179/95 H Pulse Oximetry 100 100 Oxygen Delivery Room Air Room Air Exam Const: General: comfortable and no acute distress HENMT: Face/Nose/Sinus: Normal nares present Eyes: General: appearance normal, both eyes and all related structures Neck: Neck: no JVD Resp: Auscultation: clear to auscultation bilaterally Cardio: Rate: regular rate Rhythm: regular rhythm GI: Inspection: non-distended GI Palp: Yes Soft to palpation Skin: General skin exam: normal color Neuro: General: gait normal Speech: normal speech Extrem: General: normal to inspection Psych: Mental Status: mental status grossly normal Assessment and Plan Assessment and plan (1) Screening for colon cancer: Code(s): Z12.11 - Encounter for screening for malignant neoplasm of colon Status: Acute Assessment a
[2023-04-01 10:17] VITALS: BP 179/93; PULSE 96; RESP 20; O2SAT 100
[2023-04-01 10:27] VITALS: BP 179/94; PULSE 96; RESP 20; O2SAT 100
[2023-04-01 10:37] VITALS: BP 176/90; PULSE 88; RESP 20; O2SAT 100
== END 2023-04-01 10:42 | disposition home or self-care (01) ==
PROVIDERS: PCP Nurse Practitioner Adult Health; Visit Provider Internal Medicine Gastroenterology
PROC: 0DJD8ZZ Inspection of Lower Intestinal Tract, Via Natural or Artificial Opening Endoscopic (ICD-10-PCS; CPT 45378; principal; 2023-04-01 10:00)
DX: Z12.11 Encounter for screening for malignant neoplasm of colon (principal); K57.30 Diverticulosis of large intestine without perforation or abscess without bleeding; K64.8 Other hemorrhoids; D64.9 Anemia, unspecified; E66.01 Morbid (severe) obesity due to excess calories; Z68.41 Body mass index [BMI] 40.0-44.9, adult
CPT/HCPCS: 45378; A9270; J2704; J7120

== ENCOUNTER 2023-05-18 08:25 | Emergency (ER) | payer OTHER, SELFPAY ==
[2023-05-18 08:32] VITALS: BP 117/101; PULSE 75; RESP 16; TEMP 36.8; O2SAT 99
--- NOTE | 2023-05-18 09:05 | ED.URI ---
HPI - URI/Sore Throat General Chief Complaint: Upper Respiratory Infection Stated Complaint: Cough/Drainage Time Seen by Provider: 05/18/23 09:07 Source: patient and RN notes reviewed Mode of arrival: ambulatory Limitations: no limitations History of Present Illness HPI Narrative: 47-year-old female presents with concern for persistent productive cough, sinus congestion and drainage. She reports she has had intermittent cough and sinus congestion since November, she had double pneumonia in November. She reports since then she has not been on any medications for her cough for sinus congestion. She reports symptoms have worsened in the last 3 days, she has been using an inhaler and cnut-irr-fbsabbm cough medicine without relief. MD elicited complaint: cough Related Data Allergies Allergy/AdvReac Type Severity Reaction Status Date / Time diphenhydramine Allergy Palpitation Verified 04/28/23 11:32 [From Ernie] rufina Review of Systems Review of Systems: CONSTITUTIONAL: Reports malaise. Denies chills, sweats, or fever. EYES: Denies visual changes, redness, or discharge. ENT: Reports rhinorrhea, congestion, sinus pain CARDIOVASCULAR: Denies chest pain, palpitations, or edema. RESPIRATORY: Reports productive persistent cough. Denies dyspnea. GASTROINTESTINAL: Denies abdominal pain, nausea, vomiting, diarrhea SKIN: Denies rash or itching. MUSCULOSKELETAL: Denies myalgia. NEUROLOGIC: Denies headache. All systems reviewed & are unremarkable except as noted in HPI and below PMFSH Past Medical History Medical History Allergies Anemia Anxiety Asthma Migraine Family History Family History (Updated 04/28/23 @ 11:37 by Sammie Cruz CMA) Father , 2014 Diabetes mellitus Hypertension Heart disease Mother Asthma Diabetes mellitus Hypertension Depression Colon cancer Carcinoma of colon Sibling Asthma Depression Son Asthma Depression Daughter Asthma Depression Grandparent Diabetes mellitus Hypertension Grandparent Diabetes mellitus Hypertension Heart disease Social History Social History (Updated 04/28/23 @ 11:36 by Sammie Cruz CMA) Smoking packs per day: 0 Smoking cigarettes per day: 0.0 Years smoked: 0 Smoking pack-years: 0.00 Smoking status: Never smoker Second hand tobacco smoke exposure: No Alcohol intake: never Drinks per week: 0 Substance use: never Substance use type: does not use Do You Feel Safe in your Home?: Yes Lack of Transportation: No Lack of Food: Never True Current Housing: I Have Housing Concerned About Future Housing: No Difficulty Paying Gas/Electric Bills: No Difficulty Paying for Meds: No Currently Unemployed: YES Education: Bachelor's Degree Difficulty w/ Childcare or Family Care: No Living arrangements: with family Occupation/Education: occupation 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 Gender identity (if verbalized by the patient): Female Sexual Orientation (if Verbalized by the Patient): Straight or Heterosexual Spiritual care concerns: No Agree to blood products: Yes Comments At time of signature, agree with nursing past medical, surgical, social and family history. There is no relevant family history pertinent to the presenting complaint Exam Narrative: GENERAL: Nontoxic-appearing, well-nourished, and in no acute distress. HEAD: Normocephalic EYES: PERRLA, conjunctivae clear ENT: Nares clear, turbinates edematous and erythematous. Mucous membranes moist. TM pearly valadez with dull light reflex bilaterally; no tragal tenderness. Oropharynx not erythematous without lesions. Tonsils not enlarged and without exudate, no drooling, no hoarseness, no trismus, uvula midline. NECK: Supple. No lymphadenopathy CHEST: Scattered expiratory wheeze, otherwise clear to auscultation, breath sounds
== END 2023-05-18 09:15 | disposition home or self-care (01) ==
PROVIDERS: Emergency Provider Nurse Practitioner; PCP Family Medicine
DX: J32.9 Chronic sinusitis, unspecified (principal); J40 Bronchitis, not specified as acute or chronic; Z20.822 Contact with and (suspected) exposure to COVID-19; J45.909 Unspecified asthma, uncomplicated
CPT/HCPCS: 87426; 87804; 99213; G0463

== ENCOUNTER 2023-08-01 14:40 | Outpatient (CLI) | payer OTHER, SELFPAY ==
--- NOTE | ~2023-08-01 | XR_ITS ---
EXAMINATION: XR chest 2V 08/01/2023 14:56 INDICATION: Persistent cough PROCEDURE: 2 view chest COMPARISON: No prior studies for comparison. FINDINGS: The lungs are clear. The cardiomediastinal silhouette is within normal limits. There are no pleural effusions. There is no pneumothorax suspected. IMPRESSION: 1: NO ACUTE CARDIOPULMONARY DISEASE. Reviewed, dictated and finalized at location B.
== END 2023-08-01 14:41 | disposition home or self-care (01) ==
LOC: ANHIMG 14:41
PROVIDERS: PCP Family Medicine; Visit Provider Nurse Practitioner Family
DX: R05.3 Chronic cough (principal)
CPT/HCPCS: 71046

== ENCOUNTER 2024-04-08 09:40 | Emergency (ER) | payer OTHER, SELFPAY ==
--- OUTSIDE RECORDS SUMMARY | 2024-04-08 09:42 | XMS_ITS | Encounter Summary ---
Author Organization [facility] Address [address] [place] [address] Care Team Providers Care Medical Research Scientist Name Role Phone Unavailable Primary Care Provider Unavailabl e Encounter Details Date Type Department Care Team (Late st Contact Info) Description 03/17/2023 Lab Requisition [facility] - Pathology Lab [address] [place] [id number] Shakeel Peter MD [address] [id number] Generalized enlarged lymph nodes Social History Tobacco Use Types Packs/Day Years Used Date Smoking Tobacco: Never Assessed Sex and Gender Information Value Date Recorded Sex Assigned at Not on file Gender Identity Not on file Sexual Orientation Not on file documented as of this encounter Plan of Treatment Not on file documented as of this encounter Procedures Procedure Name Priority Date/Time Associated Diagnosis Comments FLOW CYTOMETRY TISSUE PANEL Routine 03/17/2023 1:35 PM CLINICAL TRIALS SYSTEMS ADMINISTRATOR Generalized enlarged lymph nodes documented in this encounter Results * FLOW CYTOMETRY TISSUE PANEL (03/17/2023 1:35 PM CLINICAL TRIALS SYSTEMS ADMINISTRATOR) Case Report Flow Cytometry Case: [id number] Authorizing Provider: Shakeel Peter MD Collected: 03/17/2023 01:35 PM Ordering Location: [facility] Pathology Lab Received: 03/17/2023 05:16 PM Pathologist: Tanya Hooker MD Specimen: Lymph Node 03/18/2023 9:56 AM CLINICAL TRIALS SYSTEMS ADMINISTRATOR [facility] Final Diagnosis Lymph node, right neck, flow cytometric immunophenotyping: - No immunophenotypic evidence of a monoclonal B-cell or aberrant T-cell population in a scantly cellular specimen (120 cells total for evaluation) 03/18/2023 9:56 AM [facility] Flow Cytometry Interpretation Viability: 67% B-cells: polytypic, kappa:lambda ratio 1.8:1 T-cells: No immunophenotypic aberrancy detected CD4:CD8 ratio 4.2:1 A cytospin prepared from the flow cytometry specimen has been reviewed for quality process engineer purposes. 03/18/2023 9:56 AM [facility] Flow Cytometry Results Differential Result Comment Flow Cell Count /uL 120 Total Viability % 67.0 Lymphocytes % 97 Dim CD45 Region % 0 Monocytes % 1 Granulocytes % 2 03/18/2023 9:56 AM [facility] Reason for test Generalized enlarged lymph nodes 785.6 03/18/2023 9:56 AM [facility] Client Specimen ID # [id number] 03/18/2023 9:56 AM [facility] Number of markers 16 were performed. A-2 Flow CD3 A-4 Flow CD10 A-6 Flow CD20 A-7 Flow CD23 A-12 Flow CD2 A-13 Flow CD4 A-16 Flow CD1a A-3 Flow CD5 A-5 Flow CD19 A-8 Flow CD34 A-9 Flow CD45 A-14 Flow CD7 A-15 Flow CD8 A-17 Flow CD30 A-10 [place]+CD19+ A-11 Lambda+CD19+ 03/18/2023 9:56 AM [facility] Pathologist Location at [facility] 03/18/2023 9:56 AM [facility] Disclaimer Test performed at [facility], [address] [place] [address], [id number]. *The established laboratory minimum viability is 70%. Values below the minimum may result in the failure to find an abnormal population of cells. This test was developed and its performance characteristics determined by the Flow Cytometry Laboratory. It has not been cleared by the [place] Food and Drug Administration (FDA). The FDA has determined that such clearance or approval is not necessary. This test is used for clinical purposes. It should not be regarded as investigational or for research. This laboratory is regulated under the Clinical Laboratory Improvement Amendments of 1998 (CLIA) as a qualified to perform high complexity clinical testing. 03/18/2023 9:56 AM [facility] Embedded Images 9:56 AM [facility] Pathology/Cytolo gy ENTIRE LYMPH NODE / Unknown 03/17/2023 1:35 PM CLINICAL TRIALS SYSTEMS ADMINISTRATOR 03/17/2023 5:16 PM CLINICAL TRIALS SYSTEMS ADMINISTRATOR Shakeel Peter MD LAB - PATHOLOGY/CYTO LOGY ORDERABLES Performing Organization Address City/State/[facility] Co pa Phone Number [facility] [address] [phone] documented in this encounter Visit Diagnoses Diagnosis Generalized enlarged lymph nodes Enlargement of lymph nodes documented in this encounter
--- OUTSIDE RECORDS SUMMARY | 2024-04-08 09:42 | XMS_ITS | Patient Health Summary ---
Author Organization [facility] Address [address] [place] [address] Care Team Providers Care Glue Reel Operator Name Role Phone Unavailable Primary Care Provider Unavailabl e Note from [facility],non-owned Affiliates and Associated Physician Practices is amultiple site organization consisting of ambulatory clinics and hospital sitesin [place], [place], [place] and [place]. This disclosure is being madepursuant to the Care Everywhere program and may not contain all information available regarding this patient. Last updated 17.[facility] Social History Tobacco Use Types Packs/Day Years Used Date Smoking Tobacco: Never Assessed Sex and Gender Information Value Date Recorded Sex Assigned at Not on file Gender Identity Not on file Sexual Orientation Not on file Procedures * FLOW CYTOMETRY TISSUE PANEL(Performed 03/17/2023) Performed for Generalized enlarged lymph nodes Results * FLOW CYTOMETRY TISSUE PANEL (03/17/2023 1:35 PM TAMALE MACHINE FEEDER) Case Report Flow Cytometry Case: [id number] Authorizing Provider: Shakeel Peter MD Collected: 03/17/2023 01:35 PM Ordering Location: [facility] Pathology Lab Received: 03/17/2023 05:16 PM Pathologist: Tanya Hooker MD Specimen: Lymph Node 03/18/2023 9:56 AM TAMALE MACHINE FEEDER [facility] Final Diagnosis Lymph node, right neck, flow cytometric immunophenotyping: - No immunophenotypic evidence of a monoclonal B-cell or aberrant T-cell population in a scantly cellular specimen (120 cells total for evaluation) 03/18/2023 9:56 AM TAMALE MACHINE FEEDER [facility] Flow Cytometry Interpretation Viability: 67% B-cells: polytypic, kappa:lambda ratio 1.8:1 T-cells: No immunophenotypic aberrancy detected CD4:CD8 ratio 4.2:1 A cytospin prepared from the flow cytometry specimen has been reviewed for quality supervisor purposes. 03/18/2023 9:56 AM [facility] Flow Cytometry Results Differential Result Comment Flow Cell Count /uL 120 Total Viability % 67.0 Lymphocytes % 97 Dim CD45 Region % 0 Monocytes % 1 Granulocytes % 2 03/18/2023 9:56 AM [facility] Reason for test Generalized enlarged lymph nodes 785.6 03/18/2023 9:56 AM [facility] Client Specimen ID # [id number] 03/18/2023 9:56 AM [facility] Number of markers 16 were performed. A-2 Flow CD3 A-4 Flow CD10 A-6 Flow CD20 A-7 Flow CD23 A-12 Flow CD2 A-13 Flow CD4 A-16 Flow CD1a A-3 Flow CD5 A-5 Flow CD19 A-8 Flow CD34 A-9 Flow CD45 A-14 Flow CD7 A-15 Flow CD8 A-17 Flow CD30 A-10 [place]+CD19+ A-11 Lambda+CD19+ 03/18/2023 9:56 AM [facility] Pathologist Location at [facility] 03/18/2023 9:56 AM [facility] Disclaimer Test performed at [facility], [address] [place] [address], [id number]. *The established laboratory minimum viability is 70%. [...] high complexity clinical testing. 03/18/2023 9:56 AM [facility] Embedded Images 9:56 AM [facility] Pathology/Cytolo gy ENTIRE LYMPH NODE / Unknown 03/17/2023 1:35 PM TAMALE MACHINE FEEDER 03/17/2023 5:16 PM TAMALE MACHINE FEEDER Shakeel Peter MD LAB - PATHOLOGY/CYTO LOGY ORDERABLES Performing Organization Address City/State/[facility] Co de Phone Number [facility] [address] [phone]
--- OUTSIDE RECORDS SUMMARY | 2024-04-08 09:42 | XMS_ITS | Clinical Summary ---
Author Organization [facility] Address [address] [place] [address] Phone Care Team Providers Care Mica Builder Name Role Phone Provider, None Primary Care Provider Unavailabl e Allergies No known active allergies Medications No known medications Social History Tobacco Use Types Packs/Day Years Used Date Smoking Tobacco: Never Smokeless Tobacco: Never Alcohol Use Standard Drinks/Week Comments No 0 (1 standard drink = 0.6 oz pur e alcohol) Comments No Sex and Gender Information Value Date Recorded Sex Assigned at Not on file Legal Sex Female 9:46 PM CDT Gender Identity Not on file Sexual Orientation Not on file Last Filed Vital Signs Vital Sign Reading Time Taken Comments Blood Pressure 158/71 07/13/2017 7:59 PM CDT Pulse 82 07/13/2017 7:59 PM CDT Temperature 37.3 C (99.2 F) 07/13/2017 5:39 PM CDT Respiratory Rate - - Oxygen Saturation 97% 07/13/2017 5:39 PM CDT Inhaled Oxygen Concentration - - Weight 113.4 kg (250 lb) 07/13/2017 5:39 PM CDT Height 162.6 cm (5' 4 ) 07/13/2017 5:39 PM CDT Body Mass Index 42.91 07/13/2017 5:39 PM CDT Plan of Treatment Health Maintenance Due Date Last Done Comments Hepatitis C Virus (HCV) Screening 1973 TdaP Immunization 1973 Hepatitis B Immunization (1 of 3 - 19+ 3-dose series) 1992 Pap Smear 1994 Cervical Cancer Screening (CCS) 09/15/2003 HPV/Cotest 09/15/2003 Discussion re Starting/Frequency of Mammograms 2013 Colonoscopy 2018 Colorectal Cancer Screening 2018 Cologuard 09/15/2023 Immunochemical Fecal Occult Blood 09/15/2023 Mammogram 09/15/2023 Pneumococcal Immunization (5 0+ years) (1 of 1 - PCV) 09/15/2023 Zoster Immunization (1 of 2) 09/15/2023 Influenza Immunization (#1) 2023 SARS-COV-2 Immunization ( - season) 2023 11/13/2020, 10/23/2020 Respiratory Syncytial Virus (RSV) Immunization (Adult) (1 - 1-dose 75+ series) 2048 Meningococcal Immunization (ACWY) Aged Out No longer eligible b ased on patient's age to complete this topic Pneumococcal Immunization Combined Aged Out No longer eligible b ased on patient's age to complete this topic Rotavirus Immunization Aged Out No lo nger eligible based on patient's age to complete this topic Insurance [facility] Care Teams Mica Builder Relationship Specialty Start Date End Date Provider, None MARCOS PCP - General 07/13/17
--- OUTSIDE RECORDS SUMMARY | 2024-04-08 09:42 | XMS_ITS | Clinical Summary ---
Author Organization [facility] Address [address] [place] [address] Care Team Providers Care Civil Engineer Land Development Name Role Phone Tanner Diop MD Primary Care Provider [phone] Allergies Active Allergy Reactions Criticality Noted Date Comments Benadryl Allergy Decongestant Bradycardia Medium 02/04 Medications lisinopriL (PRINIVIL) 20 mg tablet Take 20 mg by mouth daily. Active ALBUTEROL SULFATE INHALATION Take by inhalation. Active ferrous sulfate 325 mg (65 mg iron) tabletIndication s:Iron deficiency anemia due to chronic blood loss Take 1 Tablet (325 mg) by mouth 2 times daily. 120 Tablet 2 08/01/2023 Active Active Problems No known active problems Encounters Date Type Department Care Team Description 03/22/2024 External Device Data [facility] ABSTRACTION Provider, Abstract from Last 3 Months Family History Medical History Relation Name Comments No Known Problems Daughter Diabetes Father Heart Disease Father Colon Cancer Mother Diabetes Mother No Known Problems Sister No Known Problems Son Relation Name Status Comments Daughter Alive Father Mother Alive Sister Alive Son Alive Social History Tobacco Use Types Packs/Day Years Used Date Smoking Tobacco: Never Smokeless Tobacco: Never Tobacco Cessation:Counseling Given: Not Answered Alcohol Use Standard Drinks/Week Comments Yes 0 (1 standard drink = 0.6 oz pur e alcohol) socially Comments Unknown Sex and Gender Information Value Date Recorded Sex Assigned at Not on file Legal Sex Female 7:56 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 OPERATOR Gender Identity Not on file Sexual Orientation Not on file Last Filed Vital Signs Vital Sign Reading Time Taken Comments Blood Pressure 153/98 08/01/2023 1:59 PM CDT Pulse 79 08/01/2023 1:59 PM CDT Temperature 36.6 C (97.8 F) 08/01/2023 1:55 PM CDT Respiratory Rate 19 08/01/2023 1:55 PM CDT Oxygen Saturation 97% 08/01/2023 1:55 PM CDT Inhaled Oxygen Concentration - - Weight 117 kg (258 lb) 08/01/2023 1:55 PM CDT Height 162.6 cm (5' 4 ) 02/04/2023 11:19 AM TC OPERATOR Body Mass Index 44.29 02/04/2023 11:19 AM TC OPERATOR Plan of Treatment Health Maintenance Due Date Last Done Comments Pre-Diabetes and Diabetes Screening 1973 DTAP/TDAP/TD VACCINES (1 - Tdap) 1992 HEPATITIS B VACCINES (1 of 3 - 19+ 3-dose series) 1992 CERVICAL CANCER SCREENING 09/15/2003 BREAST CANCER SCREENING 2013 COLORECTAL SCREENING 2018 Colorectal Cancer Screening 2018 FIT-DNA Q 3 years 2018 FIT/FOBT Q 1 year 2018 Flex Sig/CT Colonography Q 5 years 2018 ZOSTER VACCINE (1 of 2) 09/15/2023 INFLUENZA VACCINE (#1) 2023 PNEUMOCOCCAL VACCINE 0-64 YEARS Aged Out No longer eligible based on patient's age to complete this topic Insurance Care Teams Civil Engineer Land Development Relationship Specialty Start Date End Date Tanner Diop MD [address] [place] [id number] PCP - General Family Practice 02/04/23
--- OUTSIDE RECORDS SUMMARY | 2024-04-08 09:42 | XMS_ITS | Clinical Summary ---
Author Organization [facility] [employer] Address [address] [place] [address] Care Team Providers Care Suture Polisher Name Role Phone Unavailable Primary Care Provider Unavailabl e Source Comments [facility],non-owned Affiliates and Associated Physician Practices is amultiple site organization consisting of ambulatory clinics and hospital sitesin [place], [place], [place] and [place]. This disclosure is being madepursuant to the Care Everywhere program and may not contain all information available regarding this patient. Last updated 17.[facility] [employer] Social History Tobacco Use Types Packs/Day Years Used Date Smoking Tobacco: Never Assessed Sex and Gender Information Value Date Recorded Sex Assigned at Not on file Gender Identity Not on file Sexual Orientation Not on file Plan of Treatment Health Maintenance Due Date Last Done Comments COLOGUARD (AGES 45-75) - COL ON CA SCREENING 1973 COLON MONITORING 1973 COLONOSCOPY - COLON CA SCREENING 1973 CT COLONOGRAPHY - COLON CA SCREENING 1973 Colorectal Cancer Screening 1973 FIT - COLON CA SCREENING 1973 FLEX SIG - COLON CA SCREENING 1973 LIPID TESTING 1973 MAMMOGRAM 1973 PAP SMEAR 1973 HIV SCREENING 1988 HEPATITIS C SCREENING 09/10/1991 DTAP/TDAP/TD VACCINES (1 - Tdap) 1992 HEPATITIS B VACCINE (1 of 3 - 19+ 3-dose series) 1992 PNEUMOCOCCAL VACCINE 50+ (1 of 1 - PCV) 09/15/2023 ZOSTER VACCINE (1 of 2) 09/15/2023 COVID-19 VACCINE (1 - 2023-2 5 season) 2023 INFLUENZA VACCINE (#1) 2023 DEPRESSION SCREENING 02/29/2024 HIB VACCINE Aged Out No longer eligi ble based on patient's age to complete this topic HPV VACCINE Aged Out No longer eligi ble based on patient's age to complete this topic MENINGOCOCCAL (Group B) VACCINE Aged Out No longer eligible based on patient's age to complete this topic MENINGOCOCCAL VACCINE Aged Out No vivi yaneth eligible based on patient's age to complete this topic PNEUMOCOCCAL VACCINE Aged Out No long er eligible based on patient's age to complete this topic
--- OUTSIDE RECORDS SUMMARY | 2024-04-08 09:42 | XMS_ITS | Referral Summary ---
Author Organization [facility] Address [address] [place] [address] [place] [address] Care Team Providers Care Living Skills Advisor Name Role Phone Unavailable Primary Care Provider Unavailabl e Source Comments [facility],non-owned Affiliates and Associated Physician Practices is amultiple site organization consisting of ambulatory clinics and hospital sitesin [place], [place], [place] and [place]. This disclosure is being madepursuant to the Care Everywhere program and may not contain all information available regarding this patient. Last updated 17.[facility] Social History Tobacco Use Types Packs/Day Years Used Date Smoking Tobacco: Never Assessed Sex and Gender Information Value Date Recorded Sex Assigned at Not on file Gender Identity Not on file Sexual Orientation Not on file Plan of Treatment Not on file
[2024-04-08 09:44] VITALS: BP 175/110; PULSE 76; RESP 20; TEMP 36.9; O2SAT 99
--- NOTE | 2024-04-08 09:51 | ED.URI ---
HPI - URI/Sore Throat General Stated Complaint: aches/cough/nausea Time Seen by Provider: 04/08/24 09:56 Source: patient, RN notes reviewed and old records reviewed Mode of arrival: ambulatory Limitations: no limitations History of Present Illness HPI Narrative: patient presents with complaints of 4 days of runny nose, cough. She reports intermittent nausea without vomiting. More tired than usual. She has not been taking anything for her symptoms. She has also not been taking her blood pressure medication. States that she has not had any blood pressure medication in over a month because she cannot get a hold of her doctor. She denies any chest pain or shortness of breath. She is not in any obvious distress. She voices no other concerns or complaints at this time Related Data Allergies Allergy/AdvReac Type Severity Reaction Status Date / Time diphenhydramine (From Allergy Palpitation Verified 04/28/23 11:32 Benadryl) s Review of Systems Review of Systems: All systems reviewed & are unremarkable except as noted in HPI and below Constitutional: Constitutional: Reports no additional constitutional complaints and Reports headache(s) ENT: Reports system reviewed and no additional complaints, except as documented, Reports nasal congestion and Reports nasal discharge Cardiovascular: Cardiovascular: Reports no additional cardiovascular complaints Respiratory: Respiratory: Reports no additional respiratory complaints and Reports cough Gastrointestinal: Gastrointestinal: Reports no additional gastrointestinal complaints ON LICENSE OF [facility] Past Medical History Medical History Allergies Anemia Anxiety Asthma Migraine Family History Family History Father , 2014 Diabetes mellitus Hypertension Heart disease Mother Asthma Diabetes mellitus Hypertension Depression Colon cancer Carcinoma of colon Sibling Asthma Depression Son Asthma Depression Daughter Asthma Depression Grandparent Diabetes mellitus Hypertension Grandparent Diabetes mellitus Hypertension Heart disease Social History Social History (Updated 04/28/23 @ 11:36 by Sammie Cruz CMA) Smoking packs per day: 0 Smoking cigarettes per day: 0.0 Years smoked: 0 Smoking pack-years: 0.00 Smoking status: Never smoker Second hand tobacco smoke exposure: No Alcohol intake: never Drinks per week: 0 Substance use: never Substance use type: does not use Do You Feel Safe in your Home?: Yes Lack of Transportation: No Lack of Food: Never True Current Housing: I Have Housing Concerned About Future Housing: No Difficulty Paying Gas/Electric Bills: No Difficulty Paying for Meds: No Currently Unemployed: YES Education: Bachelor's Degree Difficulty w/ Childcare or Family Care: No Living arrangements: with family Occupation/Education: occupation 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 Gender identity (if verbalized by the patient): Female Sexual Orientation (if Verbalized by the Patient): Straight or Heterosexual Spiritual care concerns: No Agree to blood products: Yes Comments At the time of my signature, I reviewed and agree with the nursing past medical, surgical, social, and family history. There is no relevant family history pertinent to the patient complaint. Exam Const: General: cooperative, no acute distress, alert and awake Orientation/consciousness: oriented to person, oriented to place and oriented to time HENMT: Head: normal to inspection Ears: TM's normal bilaterally Mouth: Yes Normal oral and palatal mucosa present Throat: posterior oropharynx normal Resp: Effort & Inspection: normal respiratory effort and able to speak in complete sentences Auscultation: clear to auscultation bilaterally, no crackles, no rales, no rhonchi and no wheezes Cardio: Palpation: normal PMI Rate: regular rate Rhythm: regular rhythm Heart sounds: S1 normal heart sound present and S2 normal heart sound present Neuro: General: oriented to person, oriented to place and oriented to time Cranial nerves: Yes CN's II-XII intact bilaterally Psych: Appearance: grossly normal Thought process: Normal thought process present Insight: Good insight present (Psych) Judgement: Good judgement present (Psych) Course Course Level of Care: Express Care Visit Vital Signs Vital signs: Reviewed MDM - URI/Sore Throat MDM Narrative Medical decision making narrative: reassuring physical exam, with exception of elevated blood pressure which was discussed with patient at length. She admits that she has not been taking her blood pressure medications. One point she says she has not had that for a year, at another point states she has not had them for a month. An and their case, she reports that she has not been able to connect with her primary care provider. She is urged to do so sooner rather than later. Emergency department precautions discussed. Negative COVID, negative flu. She is advised to use [id number] medications formulated for patients with high blood pressure. Discharge instructions reviewed with patient, as well as provided in writing per nursing staff. The instructions also include specific and strict return/GO TO THE ER as well as f/u information. All questions have been answered, and the patient deny any further questions with discharge and discharge plan. Some parts of this dictation were generated by voice recognition software and may contain typographical and/or grammatical inaccuracies. Differential Diagnosis Differential diagnosis: Likely upper respiratory infection, otitis media, viral infection and influenza Medical Records Attestation: I reviewed the patient's medical records. Lab Data Attestation: I reviewed the patient's lab results. Discharge Plan Discharge Clinical Impression: Elevated blood pressure reading Upper respiratory infection Qualifiers: URI type: unspecified viral URI Qualified Code(s): J06.9 - Acute upper respiratory infection, unspecified Patient Disposition: Home, Self-Care Condition: Stable Instructions: Antibiotic Form, Viral Syndrome (ED), Hypertension (ED) Patient Language: Sinhala Prescriptions: No Action prednisone 20 mg tablet 40 mg PO DAILY 5 Days Qty: 10 0RF amoxicillin-pot clavulanate 875-125 mg tablet 1 tablet PO Q12H 10 Days Qty: 20 0RF azelastine 137 mcg (0.1 %) aerosol,spray 1 - 2 spray intranasal Q12H Qty: 30 0RF Rx Instructions: administer into each nostril. Aim back/up/out lisinopril 20 mg tablet See Rx Instructions .ROUTE .COMPLEX Qty: 90 0RF Dose Instruction: TAKE 1 TABLET BY MOUTH DAILY Rx Instructions: TAKE 1 TABLET BY MOUTH DAILY Follow-up/Referrals: Tanner Diop MD [Primary Care Provider] - 3 Days (HTN, not taking meds) Time of Disposition: 10:14
[2024-04-08 10:11] LABS: EDCOVIDSCREEN Negative (Negative); EDINFLUASCREEN Negative (Negative); EDINFLUBSCREEN Negative (Negative)
== END 2024-04-08 10:23 | disposition home or self-care (01) ==
PROVIDERS: Emergency Provider Nurse Practitioner Family; PCP Family Medicine
DX: R03.0 Elevated blood-pressure reading, without diagnosis of hypertension (principal); J06.9 Acute upper respiratory infection, unspecified; D64.9 Anemia, unspecified; F41.9 Anxiety disorder, unspecified; J45.909 Unspecified asthma, uncomplicated; Z20.822 Contact with and (suspected) exposure to COVID-19
CPT/HCPCS: 87426; 87804; 99212; G0463